=== PATIENT | female | born 2000 | race Caucasian/White ===

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

== ENCOUNTER 2019-07-25 21:36 | Emergency (ER) | payer OTHER ==
[~2019-07-25] VITALS: Ht 152.4 cm; Wt 61.2 kg
[2019-07-26] MEDS ORDERED: ZITHROMAX500 MG PO (02:28)
[2019-07-26] MEDS ORDERED: ZYNCOF 20-400120 ML PO (02:28)
== END 2019-07-26 02:44 ==
LOC: ER 21:36
DX: B34.9 Viral infection, unspecified (principal)

== ENCOUNTER 2020-11-22 21:27 | Emergency (ER) | payer OTHER ==
[~2020-11-22] VITALS: Ht 152.4 cm; Wt 61.2 kg
[~2020-11-22 21:27] MED LIST: ZITHROMAX500 MG PO; ZYNCOF 20-400120 ML PO
[2020-11-23] MEDS ORDERED: LEVSIN/SL0.125 MG SL (04:40)
[2020-11-23] MEDS ORDERED: PEPCID40 MG PO (04:40)
== END 2020-11-23 | disposition home or self-care (01) ==
LOC: ER 21:27
DX: K80.20 Calculus of gallbladder without cholecystitis without obstruction (principal); K29.70 Gastritis, unspecified, without bleeding

== ENCOUNTER 2021-02-17 07:30 | Emergency (ER) | payer OTHER ==
[~2021-02-17] VITALS: Ht 152.4 cm; Wt 59.0 kg
[~2021-02-17 07:30] MED LIST changes: +LEVSIN/SL0.125 MG SL; +PEPCID40 MG PO
== END 2021-02-17 09:47 | disposition home or self-care (01) ==
LOC: ER 07:30
DX: K29.60 Other gastritis without bleeding (principal); K80.80 Other cholelithiasis without obstruction

== ENCOUNTER 2021-06-11 04:13 | Emergency (ER) | payer OTHER ==
[~2021-06-11] VITALS: Ht 152.4 cm; Wt 60.8 kg
[2021-06-11] MEDS ORDERED: KETO10TA2 PO (10:39)
[2021-06-11] MEDS ORDERED: AMOX-CLAV 875-1 EACH PO (10:39)
== END 2021-06-11 10:48 | disposition home or self-care (01) ==
LOC: ER 04:13
DX: K13.79 Other lesions of oral mucosa (principal)

== ENCOUNTER 2022-02-23 08:22 | Emergency (ER) | payer OTHER ==
[~2022-02-23] VITALS: Ht 152.4 cm; Wt 57.2 kg
[~2022-02-23 08:22] MED LIST changes: +AMOX-CLAV 875-1 EACH PO; +KETO10TA2 PO
[2022-02-23] MEDS ORDERED: INTESTINEX680 M1 PO (11:31)
[2022-02-23] MEDS ORDERED: ZITHROMAX500 MG PO (11:31)
[2022-02-23] MEDS ORDERED: PEPCID AC20 MG PO (11:31)
[2022-02-23] MEDS ORDERED: CIPRO500 MG PO (12:31)
[2022-02-23] MEDS ORDERED: METRONIDAZOLE500 MG PO (12:31)
== END 2022-02-23 18:04 | disposition home or self-care (01) ==
LOC: ER 08:22
DX: K52.9 Noninfective gastroenteritis and colitis, unspecified (principal); A49.3 Mycoplasma infection, unspecified site; Z20.822 Contact with and (suspected) exposure to COVID-19

== ENCOUNTER 2022-07-16 09:30 | Outpatient (CLI) | payer OTHER ==
[~2022-07-16 09:30] MED LIST changes: +CIPRO500 MG PO; +INTESTINEX680 M1 PO; +METRONIDAZOLE500 MG PO; +PEPCID AC20 MG PO
== END 2022-07-16 10:35 | disposition home or self-care (01) ==
LOC: PRENATAL 09:30
PROVIDERS: ATTEND Obstetrics & Gynecology Maternal & Fetal Medicine
DX: O36.80X0 Pregnancy with inconclusive fetal viability, not applicable or unspecified (principal); O34.219 Maternal care for unspecified type scar from previous cesarean delivery; Z3A.12 12 weeks gestation of pregnancy

== ENCOUNTER 2022-09-04 08:00 | Outpatient (CLI) | payer OTHER | END 2022-09-04 09:15 | disposition home or self-care (01) | LOC: PRENATAL 08:00 | PROVIDERS: ATTEND Obstetrics & Gynecology Maternal & Fetal Medicine | DX: O35.9XX0 Maternal care for (suspected) fetal abnormality and damage, unspecified, not applicable or unspecified (principal); O35.3XX0 Maternal care for (suspected) damage to fetus from viral disease in mother, not applicable or unspecified; O34.219 Maternal care for unspecified type scar from previous cesarean delivery; Z3A.19 19 weeks gestation of pregnancy ==

== ENCOUNTER 2022-12-04 15:37 | Outpatient (CLI) | payer OTHER | END 2022-12-04 17:12 | disposition home or self-care (01) | LOC: PRENATAL 15:37 | PROVIDERS: ATTEND Obstetrics & Gynecology Maternal & Fetal Medicine | DX: O26.849 Uterine size-date discrepancy, unspecified trimester (principal); O36.8199 Decreased fetal movements, unspecified trimester, other fetus; O34.219 Maternal care for unspecified type scar from previous cesarean delivery; Z3A.32 32 weeks gestation of pregnancy ==

== ENCOUNTER 2022-12-15 01:26 | Outpatient (CLI) | payer OTHER ==
[2022-12-15] MEDS ORDERED: PRENATAL TABLE1 EAC1 PO (01:29)
== END 2022-12-15 13:11 | disposition home or self-care (01) ==
LOC: OBS/DEL 01:26 → LDR 10:31 → OBS/DEL 13:11
PROVIDERS: ATTEND Obstetrics & Gynecology
DX: O47.03 False labor before 37 completed weeks of gestation, third trimester (principal); Z3A.34 34 weeks gestation of pregnancy

== ENCOUNTER 2023-01-13 09:17 | Inpatient (IN) | payer OTHER ==
[~2023-01-13] VITALS: Ht 152.4 cm; Wt 2.7 kg
[~2023-01-13 09:17] MED LIST changes: +PRENATAL TABLE1 EAC1 PO
[2023-01-15] MEDS ORDERED: FOLIC ACID0.8 M1 (16:20)
[2023-01-15] MEDS ORDERED: FOLIC ACID1 MG (16:20)
== END 2023-01-18 13:33 | disposition home or self-care (01) | DRG 785 ==
LOC: O/R 01-15 06:53 → OB/GYN 01-15 06:53
PROVIDERS: ADMIT Obstetrics & Gynecology; ATTEND Obstetrics & Gynecology
PROC: 0UB70ZZ Excision of Bilateral Fallopian Tubes, Open Approach (ICD-10-PCS; 2023-01-15)
PROC: 4A1HXCZ Monitoring of Products of Conception, Cardiac Rate, External Approach (ICD-10-PCS; 2023-01-15)
PROC: 10D00Z1 Extraction of Products of Conception, Low, Open Approach (ICD-10-PCS; principal; 2023-01-15 14:15)
DX: O34.211 Maternal care for low transverse scar from previous cesarean delivery (principal); Z3A.39 39 weeks gestation of pregnancy; Z30.2 Encounter for sterilization; Z20.822 Contact with and (suspected) exposure to COVID-19; Z37.0 Single live birth